=== PATIENT | male | born 1945 | race African-American/Black ===

== ENCOUNTER 2021-10-06 15:34 | Emergency (ER) | payer OTHER ==
[2021-10-06 16:37] LABS: #Monocytes 0.5 10x3/uL (0.0-1.1); #Neutrophils 3.6 10x3/uL (1.5-8.4); %Basophils 0.2 % (0.0-2.0); %Eosinophils 0.8 % (0.0-6.0); %Lymphocytes 15.9 % (18.0-47.0); %Monocytes 10.5 % (0.0-10.0); %Neutrophils 72.4 % (40.0-75.0); Mean Corpuscular HGB CONC 33.4 g/dL (32.0-36.0); Mean Corpuscular Hemoglobin 29.5 pg (27.0-33.0); Mean Corpuscular Volume 88.4 fl (81.2-95.1); Mean Platelet Volume 12.1 fl (7.4-10.4); Platelet Count 107 10x3/uL (150-450)
[2021-10-06 16:53] LABS: ALT (SGPT) 11 U/L (8-55); AST (SGOT) 18 U/L (5-34); Albumin 4.4 g/dL (3.4-4.8); Alkaline Phosphatase 81 U/L (40-110); Anion Gap 15 mmol/L (10-20); BUN (Urea Nitrogen) 17 mg/dL (8.4-25.7); Bilirubin, Total 0.9 mg/dL (0.2-1.2); Calc. Creatinine Clearance 0 mL/min (70-130); Calcium 9.3 mg/dL (7.8-10.44); Carbon Dioxide 23 mmol/L (23-31); Chloride 101 mmol/L (98-107); Globulin 3.1 g/dL (2.4-3.5); Glucose 106 mg/dL (83-110); Potassium 4.4 mmol/L (3.5-5.1); Protein, Total 7.5 g/dL (5.8-8.1); Sodium 135 mmol/L (136-145)
[2021-10-06] MEDS ORDERED: Morphine 4 MG/ML VIAL ONE (16:55)
[2021-10-06 17:17] LABS: Bilirubin Neg (Negative); Blood, Urine 250 (Negative); Clarity Clear (Clear); Glucose, Urine (Dipstick) Normal (Negative); Ketone, Urine Negative (Negative); Leukocyte Negative (Negative); Nitrite Negative (Negative); Protein, Urine (Dipstick) Negative (Neg-Trace); Specific Gravity, Urine 1.005 (1.002-1.036); Urobilinogen Normal mg/dL (Less than 2)
[2021-10-06 17:31] LABS: RBC/HPF 0-3 HPF (0-3); Squamous Epithelial 0-3 HPF (0-3); WBC/HPF 0-3 HPF (0-3)
[2021-10-06 17:32] LABS: Bacteria/HPF Rare-Few HPF (None Seen); Mucous/LPF 1+ LPF (<2+)
== END 2021-10-06 19:22 | disposition home or self-care (01) ==
LOC: CSHERS 15:34
DX: N40.1 Benign prostatic hyperplasia with lower urinary tract symptoms (principal); R33.8 Other retention of urine; G89.29 Other chronic pain; M54.9 Dorsalgia, unspecified; E11.9 Type 2 diabetes mellitus without complications; I10 Essential (primary) hypertension
CPT/HCPCS: 36415; 51702; 80053; 81003; 81015; 85025; 85652; 86140; 96374; J2270

== ENCOUNTER 2022-01-06 10:44 | Outpatient (CLI) | payer OTHER ==
[~2022-01-06 10:44] MED LIST: Magnevist 469MG/ML 20 ML VIAL ONE
== END 2022-01-06 10:45 | disposition home or self-care (01) ==
LOC: CSHMRI 10:44
PROVIDERS: ATTEND Urology
DX: N42.31 Prostatic intraepithelial neoplasia (principal)
CPT/HCPCS: 72197; 82565; A9579

== ENCOUNTER 2022-08-23 10:05 | Emergency (ER) | payer OTHER, MEDICARE ==
[2022-08-23 11:40] LABS: #Eosinphils 0.1 10x3/uL (0.0-0.5); #Monocytes 0.3 10x3/uL (0.0-1.1); #Neutrophils 2.5 10x3/uL (1.5-8.4); %Basophils 0.7 % (0.0-2.0); %Eosinophils 2.5 % (0.0-6.0); %Lymphocytes 26.2 % (18.0-47.0); %Monocytes 7.9 % (0.0-10.0); %Neutrophils 62.5 % (40.0-75.0); Mean Corpuscular HGB CONC 32.5 g/dL (32.0-36.0); Mean Corpuscular Hemoglobin 28.8 pg (27.0-33.0); Mean Corpuscular Volume 88.5 fl (81.2-95.1); Mean Platelet Volume 11.7 fl (7.4-10.4); Platelet Count 145 10x3/uL (150-450); Red Blood Cell (RBC) Count 4.17 10x6/uL (4.32-5.72)
[2022-08-23 11:56] LABS: ALT (SGPT) 11 U/L (8-55); AST (SGOT) 18 U/L (5-34); Albumin 3.9 g/dL (3.4-4.8); Alkaline Phosphatase 76 U/L (40-110); Anion Gap 14 mmol/L (10-20); BUN (Urea Nitrogen) 19 mg/dL (8.4-25.7); Bilirubin, Total 0.3 mg/dL (0.2-1.2); Calc. Creatinine Clearance 0 mL/min (70-130); Calcium 8.8 mg/dL (7.8-10.44); Carbon Dioxide 23 mmol/L (23-31); Chloride 106 mmol/L (98-107); Estimated GFR 81; Globulin 2.6 g/dL (2.4-3.5); Glucose 167 mg/dL (83-110); Potassium 4.5 mmol/L (3.5-5.1); Protein, Total 6.5 g/dL (5.8-8.1); Sodium 138 mmol/L (136-145)
== END 2022-08-23 12:53 | disposition home or self-care (01) ==
LOC: CSHERS 10:05
DX: R55 Syncope and collapse (principal); I10 Essential (primary) hypertension; E11.9 Type 2 diabetes mellitus without complications
CPT/HCPCS: 71045; 80053; 84484; 85025; 93005; 94760